=== PATIENT | female | born 1965 | race Two or more races ===

== ENCOUNTER 2019-06-14 11:12 | Emergency (ER) | payer SELFPAY ==
[~2019-06-14] VITALS: Ht 152.4 cm; Wt 85.3 kg
[2019-06-14 11:19] VITALS: BP 148/81; Ht 152.4 cm; Wt 85.3 kg
== END 2019-06-14 13:32 | disposition left against medical advice (07) ==
LOC: ED 11:12
DX: Z53.21 Procedure and treatment not carried out due to patient leaving prior to being seen by health care provider (principal)

== ENCOUNTER 2019-08-17 15:13 | Inpatient (IN) | payer OTHER ==
[~2019-08-17] VITALS: Ht 165.1 cm; Wt 92.2 kg
[2019-08-17 17:45] LABS: BASOPHIL % 0.8 % (0-2); PLATELET COUNT 249 x10^3mcL (130-400); RED CELL DISTRIBUTION WIDTH 13.1 % (11.5-14.5)
[2019-08-17 18:21] LABS: CARBON DIOXIDE 27.1 mmol/L (21-32); CHLORIDE SERUM 104 mmol/L (98-107); CREATININE SERUM 0.7 mg/dL (0.6-1.0); GFR1 > 60 mL/min; GLUCOSE SERUM 109 mg/dL (74-106); POTASSIUM SERUM 4.3 mmol/L (3.5-5.1); SODIUM SERUM 141 mmol/L (136-145)
[2019-08-17 18:28] LABS: ALBUMIN 3.5 g/dL (3.4-5.0); ALKALINE PHOSPHATASE 125 U/L (46-116); ALT/SGPT 45 U/L (14-59); AST/SGOT 34 U/L (15-37); BILIRUBIN TOTAL 0.35 mg/dL (0.20-1.00); TOTAL PROTEIN, SERUM 7.8 g/dL (6.4-8.2)
[2019-08-17 18:49] LABS: UA SPECIFIC GRAVITY <=1.005 (1.005-1.035); microscopic required? YES; urine erythrocyte TRACE (NEGATIVE)
[2019-08-17] MEDS ORDERED: ATENOLOL25 MG (19:27)
[2019-08-17 20:12] LABS: T3 TOTAL 1.43 ng/mL
[2019-08-17 20:18] LABS: FREE T4 0.78 ng/dL (0.76-1.46); FREE THYROXINE INDEX 2.5 ug/dL (1.4-4.5); T4(THYROXINE) 7.9 ug/dL (4.7-13.3)
[2019-08-17 20:28] VITALS: BP 152/93
[2019-08-17 20:33] VITALS: Ht 165.1 cm; Wt 92.2 kg
[2019-08-18 04:40] VITALS: BP 124/74
[2019-08-18 06:40] LABS: PLATELET COUNT 226 x10^3mcL (130-400); RED CELL DISTRIBUTION WIDTH 13.3 % (11.5-14.5)
[2019-08-18 06:43] LABS: CALCIUM 9.1 mg/dL (8.5-10.1); CARBON DIOXIDE 30.1 mmol/L (21-32); CHLORIDE SERUM 104 mmol/L (98-107); CREATININE SERUM 0.8 mg/dL (0.6-1.0); GFR1 > 60 mL/min; GLUCOSE SERUM 104 mg/dL (74-106); PHOSPHOROUS 4.1 mg/dL (2.5-4.9); POTASSIUM SERUM 4.6 mmol/L (3.5-5.1); SODIUM SERUM 141 mmol/L (136-145)
[2019-08-18] MEDS ORDERED: ATENOLOL25 MG PO (08:27)
[2019-08-18 08:44] VITALS: BP 140/81
[2019-08-18 12:26] VITALS: BP 143/91
[2019-08-18 16:46] VITALS: BP 125/60
[2019-08-18 19:38] VITALS: BP 134/75
[2019-08-19 05:19] VITALS: BP 112/62
[2019-08-19 06:30] LABS: BASOPHIL % 0.7 % (0-2); PLATELET COUNT 246 x10^3mcL (130-400); RED CELL DISTRIBUTION WIDTH 12.9 % (11.5-14.5)
[2019-08-19 06:54] LABS: CALCIUM 9.5 mg/dL (8.5-10.1); CARBON DIOXIDE 29.4 mmol/L (21-32); CHLORIDE SERUM 102 mmol/L (98-107); CREATININE SERUM 0.7 mg/dL (0.6-1.0); GFR1 > 60 mL/min; GLUCOSE SERUM 91 mg/dL (74-106); POTASSIUM SERUM 4.6 mmol/L (3.5-5.1); SODIUM SERUM 140 mmol/L (136-145)
[2019-08-19 07:40] VITALS: BP 120/72
[2019-08-19] MEDS ORDERED: ZIT250 PO (10:56)
[2019-08-19 11:37] VITALS: BP 138/75
[2019-08-19 12:56] VITALS: BP 120/72
== END 2019-08-19 13:50 | disposition home or self-care (01) | DRG 47 ==
LOC: ED 15:13 → DU 19:25
PROVIDERS: Emergency Medicine; ADMIT Family Medicine
DX: G45.9 Transient cerebral ischemic attack, unspecified (principal); E11.9 Type 2 diabetes mellitus without complications; E78.5 Hyperlipidemia, unspecified; I10 Essential (primary) hypertension; R47.81 Slurred speech; Z79.84 Long term (current) use of oral hypoglycemic drugs; Z79.899 Other long term (current) drug therapy
CPT/HCPCS: 82962; 84439; G0378; J2405; Q0092